=== PATIENT | female | born 1995 | race Caucasian/White ===

== ENCOUNTER → 2020-12-02 11:46 | Outpatient (CLI) | payer OTHER, SELFPAY ==
--- NOTE | ~2020-12-02 | US_ITS ---
US breast RT limited DATE: 12/02/2020 11:58 INDICATION: Follow-up of right breast mass TECHNIQUE: High-resolution ultrasound imaging and color flow imaging targeted at right breast mass COMPARISON: 09/04/2017 right breast ultrasound examination FINDINGS: 11:00 3 cm from nipple: Corresponding to the area of the palpable mass at 11:00 3 cm from the nipple there is a circumscribed parallel hypoechoic solid mass without internal vascularity, with some throu gh transmission and posterior enhancement. The lesion currently measures 1.8 x 1 x 2 cm dimension, co mpared to 2.3 x 1.6 x 2.0 cm dimension on 09/04/2017. IMPRESSION: Interval decreased size of right breast 11:00 lesion, with sonographic features most cons istent with benign fibroadenoma BI-RADS Category 2: Benign Reviewed, dictated and finalized at [facility]. Reviewed, dictated and finalized at [facility]. IMPRESSION: Interval decreased size of right breast 11:00 lesion, with sonograp hic features most consistent with benign fibroadenoma BI-RADS Category 2: Benign
== END ==
PROVIDERS: Visit Provider Obstetrics & Gynecology Gynecology
DX: R92.8 Other abnormal and inconclusive findings on diagnostic imaging of breast (principal)
CPT/HCPCS: 76642